=== PATIENT | female | born 1990 | race Caucasian/White ===

== ENCOUNTER → 2023-11-01 | Outpatient (REF) | payer OTHER ==
[2023-12-20 12:06] LABS: ANA SCREEN with REFLEX NEG
[2023-12-21 10:52] LABS: ALBUMIN 4.6 g/dL (3.5-5.0); CALCIUM 9.5 mg/dL (8.3-10.5); TOTAL BILIRUBIN 0.6 mg/dL (0.2-1.2); TOTAL PROTEIN 7.2 g/dL (6.4-8.3)
[2023-12-21 11:34] LABS: BASO # 0.08 K/mm3 (0.02-0.10); EOS # 0.29 K/mm3 (0.04-0.40); EOS % 3.9 % (1.0-5.0); HEMATOCRIT 40.9 % (37.0-47.0); HEMOGLOBIN 13.4 g/dL (12.5-16.0); LYMPH# 2.35 K/mm3 (1.50-4.00); MEAN CELL VOLUME 85 fl (78-100); MEAN CORPUSCULAR HEMOGLOBIN 28 pg (27-31); MEAN CORPUSCULAR HGB CONC 33 g/dL (33-37); MEAN PLATELET VOLUME 9.4 fl (7.4-10.4); MONO # 0.39 K/mm3 (0.20-0.80); NEU # 4.38 K/mm3 (1.40-6.50); PLATELET COUNT 265 K/mm3 (130-400); RED BLOOD COUNT 4.79 M/mm3 (4.10-5.30); RED CELL DISTRIBUTION WIDTH 12.1 % (11.5-14.5); WHITE BLOOD COUNT 7.5 K/mm3 (4.8-10.8)
== END ==
LOC: LAB 09:44
PROVIDERS: Nurse Practitioner
DX: Z00.00 Encounter for general adult medical examination without abnormal findings (principal); Z13.220 Encounter for screening for lipoid disorders; M25.50 Pain in unspecified joint; R68.89 Other general symptoms and signs